=== PATIENT | male | born 1980 | race Caucasian/White ===

== ENCOUNTER 2023-12-24 21:56 | Emergency (ER) | payer OTHER ==
[2023-12-24 22:10] VITALS: BP 137/87; PULSE 112; RESP 18; TEMP 98; BMI 23.5
[2023-12-24] MEDS ORDERED: ACETAMINOPHEN 325 MG TABLET (FP) ONE (22:35)
[2023-12-24] MEDS: ACETAMINOPHEN 325 MG TABLET (FP) PO ONE (22:36)
== END 2023-12-24 23:16 | disposition home or self-care (01) ==
LOC: JER 21:56 → JERFT 21:56
DX: S86.912A Strain of unspecified muscle(s) and tendon(s) at lower leg level, left leg, initial encounter (principal); X50.0XXA Overexertion from strenuous movement or load, initial encounter
CPT/HCPCS: 99283-25